=== PATIENT | female | born 2000 | race Caucasian/White ===

== ENCOUNTER 2018-06-21 15:11 | Emergency (ER) | payer BC ==
--- NOTE | 2018-06-21 15:19 | EDPHY ---
H & P Time Seen by Provider: 06/21/18 15:18 HPI/ROS: CHIEF COMPLAINT: Nausea and vomiting HISTORY OF PRESENT ILLNESS: Patient had IUD inserted on Saturday and had nausea vomiting cramping that day. She was felt better and Saturday and then went Saturday night had drinks with friends and then since last night has had mild cramping but mostly nausea vomiting and can't keep anything down. Associated with hot flashes but not with diarrhea, she has had constipation. Symptoms severe and worse today with trying to eat or drink anything. Not associated with headache or fever but she does feel little bit dizzy and lightheaded. REVIEW OF SYSTEMS: Eye: no change in vision ENT: no sore throat Cardiac: no chest pain or syncope Pulmonary: no cough or SOB Abdomen: HPI Musculoskeletal: no back pain Skin: no rash Neuro: no headache Constitutional: no fever : no urinary symptoms or vaginal bleeding or discharge A comprehensive 10 point review of systems is otherwise negative aside from elements mentioned in the history of present illness. PAST MEDICAL HISTORY: IUD, recently removed hormone implant from left arm Social history: Alcohol last night General Appearance: Alert and conversant, cooperative. Eyes: No scleral icterus. ENT, Mouth: Dry mucous membranes. Respiratory: Normal respiratory effort, breath sounds equal, lungs are clear to auscultation. Cardiovascular: Regular rate and rhythm. Gastrointestinal: Abdomen is soft and non tender. No rebound or guarding,and specifically no lower abdominal tenderness or tenderness over McBurney's point. Neurological: Alert, face symmetric, normal motor and sensory in extremities. Skin: Warm and dry, no rashes. Steri-Strips still in place on the left upper arm, wound is clean dry and intact. Musculoskeletal: No peripheral edema. Psychiatric: Mildly anxious. Emergency Department course/MDM: Normal saline 2 L IV, Zofran 4 mg IV for nausea and vomiting. Toradol 15 mg IV for cramping which persists after her IUD insertion 3 days ago. I think it is unlikely she has acute appendicitis, bowel obstruction, acute surgical abdominal process, pancreatitis or cholecystitis. 1602: Labs reviewed including elevated WBC likely due to stress demargination, venous bicarbonate likely due to dehydration. Says she feels better, has some pretty severe heartburn likely from all of her vomiting, no further nausea. Texting on her phone, does appear more comfortable now. 1720: Taking p.o. Fluids, GI cocktail given. Smoking Status: Current some day smoker Constitutional: Initial Vital Signs Temperature (C) 36.5 C 06/21/18 15:15 Heart Rate 74 06/21/18 15:15 Respiratory Rate 16 06/21/18 15:15 Blood Pressure 127/88 H 06/21/18 15:15 O2 Sat (%) 98 06/21/18 15:15 O2 Delivery Mode Room Air Allergies/Adverse Reactions: amoxicillin Allergy (Verified 06/21/18 15:14) Home Medications: Medication Instructions Recorded Adderall 10 MG (*) 06/21/18 Ondansetron Odt [Zofran Odt] 4 mg PO Q4PRN #6 tab 06/21/18 Medical Decision Making - Data Points Laboratory Results: Laboratory Results 06/21/18 15:25 06/21/18 15:25 06/21/18 06/21/18 06/21/18 15:25 15:25 15:25 WBC 21.76 10^3/uL H 10^3/uL (3.80-9.50) RBC 5.53 10^6/uL H 10^6/uL (4.18-5.33) Hgb 16.0 g/dL g/dL (12.6-16.3) Hct 45.6 % % (38.0-47.0) MCV 82.5 fL fL (81.5-99.8) MCH 28.9 pg pg (27.9-34.1) MCHC 35.1 g/dL g/dL (32.4-36.7) RDW 12.2 % % (11.5-15.2) Plt Count 393 10^3/uL 10^3/uL (150-400) MPV 9.6 fL fL (8.7-11.7) Neut % (Auto) 92.2 % H % (39.3-74.2) Lymph % (Auto) 5.2 % L % (15.0-45.0) [place] % (Auto) 2.2 % L % (4.5-13.0) Eos % (Auto) 0.0 % L % (0.6-7.6) Baso % (Auto) 0.1 % L % (0.3-1.7) Nucleat RBC Rel Count 0.0 % % (0.0-0.2) Absolute Neuts (auto) 20.06 10^3/uL H 10^3/uL (1.70-6.50) Absolute Lymphs (auto) 1.13 10^3/uL 10^3/uL (1.00-3.00) Absolute Monos (auto) 0.48 10^3/uL 10^3/uL (0.30-0.80) Absolute Eos (auto) 0.00 10^3/uL L 10^3/uL (0.03-0.40) Absolute Basos (auto) 0.02 10^3/uL 10^3/uL (0.02-0.10) Absolute Nucleated RBC 0.00 10^3/uL 10^3/uL (0-0.01) Immature Gran % 0.3 % % (0.0-1.1) Immature Gran # 0.07 10^3/uL 10^3/uL (0.00-0.10) RBC/WBC/PLT Morphology TNP Platelet Estimate TNP Sodium 137 mEq/L mEq/L (135-145) Potassium 4.7 mEq/L mEq/L (3.3-5.0) Chloride 96 mEq/L L mEq/L (97-110) Carbon Dioxide 24 mEq/l mEq/l (22-31) Anion Gap 17 mEq/L H mEq/L (8-16) BUN 11 mg/dL mg/dL (7-23) Creatinine 0.7 mg/dL mg/dL (0.6-1.0) Estimated GFR > 60 Glucose 89 mg/dL mg/dL (70-100) Calcium 10.8 mg/dL H mg/dL (8.5-10.4) Phosphorus 4.0 mg/dL mg/dL (2.5-4.5) Beta HCG, Qual NEGATIVE Medications Given: Discontinued Medications Sodium Chloride (Ns) 1,000 mls @ 0 mls/hr IV EDNOW ONE; Wide Open PRN Reason: Protocol Stop: 06/21/18 15:24 Last Admin: 06/21/18 15:32 Dose: 1,000 mls Sodium Chloride (Ns) 1,000 mls @ 0 mls/hr IV EDNOW ONE; Wide Open PRN Reason: Protocol Stop: 06/21/18 15:24 Last Admin: 06/21/18 15:32 Dose: 1,000 mls Ketorolac Tromethamine (Toradol) 15 mg IVP EDNOW ONE Stop: 06/21/18 15:24 Last Admin: 06/21/18 15:35 Dose: 15 mg Ondansetron HCl (Zofran) 4 mg IVP EDNOW ONE Stop: 06/21/18 15:24 Last Admin: 06/21/18 15:32 Dose: 4 mg Departure - Departure Disposition: Home, Routine, Self-Care Clinical Impression: Dehydration Nausea & vomiting Qualifiers: Vomiting type: unspecified Vomiting Intractability: non-intractable Qualified Code(s): R11.2 - Nausea with vomiting, unspecified Condition: Good Instructions: Acute Nausea and Vomiting (ED) Referrals: [place]ormier [place] [place] - As per Instructions Prescriptions: Ondansetron Odt [Zofran Odt] 4 mg PO Q4PRN #6 tab
[2018-06-21] MEDS ORDERED: KETOROLAC 30 MG/1 ML SDV IVP ONE (15:23)
[2018-06-21] MEDS ORDERED: NS 1,000 ML IV ONE ×2 (15:23)
[2018-06-21] MEDS ORDERED: ONDANSETRON 4 MG/2 ML VIAL IVP ONE (15:23)
[2018-06-21 15:44] LABS: PLATELET COUNT 393 10^3/uL (150-400)
[2018-06-21] MEDS ORDERED: MAG HYDROX/AL HYDROX/SIMETH 30 ML UDCUP PO ONE (17:19)
[2018-06-21] MEDS ORDERED: HYOSCYAMINE SULFATE 0.125 MG TAB PO ONE (17:19)
[2018-06-21] MEDS ORDERED: LIDOCAINE 2% VISCOUS 15 ML UDCUP PO ONE (17:19)
[2018-06-21 18:20] VITALS: BP 89/49
== END 2018-06-21 18:19 | disposition home or self-care (01) ==
DX: R11.2 Nausea with vomiting, unspecified (principal); E86.9 Volume depletion, unspecified; Z97.5 Presence of (intrauterine) contraceptive device; F17.200 Nicotine dependence, unspecified, uncomplicated
CPT/HCPCS: 96374; J1885; J2405

== ENCOUNTER 2018-07-27 10:49 | Emergency (ER) | payer BC ==
[2018-07-27] MEDS ORDERED: ONDANSETRON 4 MG/2 ML VIAL ONE (11:03)
[2018-07-27] MEDS ORDERED: HALOPERIDOL LACT 5 MG/ML INJ IVP ONE (11:15)
[2018-07-27] MEDS ORDERED: PANTOPRAZOLE SODIUM 40 MG VIAL IVP ONE (11:16)
[2018-07-27] MEDS ORDERED: NS 1,000 ML IV ONE ×2 (11:16→11:54)
--- NOTE | 2018-07-27 11:16 | EDPHY ---
General Time Seen by Provider: 07/27/18 11:06 Narrative: CHIEF COMPLAINT: Abdominal pain, nausea vomiting HISTORY OF PRESENT ILLNESS: Patient presents by private vehicle with complaints of abdominal pain, nausea vomiting. Symptoms started last night around 11:00 p.m.. She describes generalized abdominal pain that is worse in the epigastrium. Constant duration. Rated as severe. She began vomiting at midnight. She has had episodes of vomiting every 30 min with too numerous to count episodes. Pain is worse with movement and palpation. Minimal improvement rest. She describes achy feeling, joint pain, lightheaded, dizzy, numb and tingly. She reports heavy alcohol use on Saturday night but none yesterday. She does report daily marijuana use. She has previous episode of this 1 month ago, for which she was evaluated here. No formal diagnosis. She has not seen anyone for follow-up for this. No other associated complaints or modifying factors. REVIEW OF SYSTEMS: 10 systems were reviewed and negative with the exception of the elements mentioned in the history of present illness. PCP: Located in [place] SPECIALISTS: None PAST MEDICAL HISTORY: Denies. Reports that she has not been taking her oral contraceptive or acting medicine recently. PAST SURGICAL HISTORY: No abdominal surgical history. No pregnancies. SOCIAL HISTORY: Denies tobacco use. Occasional alcohol use. Daily marijuana use. [employer] student. Originally from [place] FAMILY HISTORY: Noncontributory EXAMINATION: Vitals: Triage VS reviewed General Appearance: Alert, no distress. Nontoxic. Head: normocephalic, atraumatic Eyes: Pupils equal and round, no conjunctival pallor or injection ENT, Mouth: Mucous membranes dry. Airway patent. Neck: Normal inspection, supple, non-tender Respiratory: Lungs are clear to auscultation Cardiovascular: Regular rate and rhythm no murmur Gastrointestinal: Abdomen is soft and nondistended. Mild epigastric tenderness. No tympany. No rigidity. No guarding. Bowel sounds present all 4 quadrants. No CVA tenderness. Back: non-tender, no bony abnormalities Neurological: A&O, nonfocal, normal gait Skin: Warm and dry, no rash Extremities: Nontender, no pedal edema Psychiatric: Mood and affect normal DIFFERENTIAL DIAGNOSES: Including but not limited to acute gastritis, alcoholic gastritis, cyclical vomiting, THC hyperemesis, pancreatitis, cholecystitis, cholelithiasis, colitis MDM: 11:10 a.m. Nausea vomiting abdominal pain with benign abdominal examination. She does have history examination that suggest gastritis versus THC hyperemesis. Vital signs are within normal limits and she does not meet SIRS criteria. IV has been established. Laboratory studies pending. I have ordered symptomatic medications and will re-evaluate shortly. 12:40 p.m. Patient re-evaluated. She is feeling much better and tolerating liquid intake. Laboratory studies reviewed and there are no significant abnormalities. Leukocytosis, suspected to be demargination. She has a benign abdominal examination at this time. She is comfortable going home. I discussed the need to refrain from any THC use for the next 6 weeks. We discussed avoidance of alcohol or other offending agents. We discussed clear liquid diet, advancing slowly as tolerated. We discussed ED precautions for return of pain, fever, persistent vomiting of intake by mouth. She is comfortable this plan. Discharged stable condition. SUPERVISION: This patient was independently evaluated without direct involvement of or examination by the attending physician. CONSULTATION: None - History History Review: I reviewed the patient's medical records Smoking Status: Current some day smoker - Objective Vital Signs: Initial Vital Signs Temperature (C) 97.9 F 07/27/18 10:56 Heart Rate 71 07/27/18 10:56 Respiratory Rate 18 07/27/18 10:56 Blood Pressure 137/99 H 07/27/18 10:56 O2 Sat (%) 98 07/27/18 10:56 O2 Delivery Mode Room Air Allergies/Adverse Reactions: amoxicillin Allergy (Verified 07/27/18 10:58) Home Medications: Medication Instructions Recorded Adderall 10 MG (*) 06/21/18 Ondansetron Odt [Zofran Odt] 4 mg PO Q4PRN #6 tab 06/21/18 Promethazine HCl [Phenergan 25mg 25 mg PO Q8 PRN #12 tab 07/27/18 (*)] Sucralfate [Carafate Oral Liquid 10 ml PO QID PRN #240 ml 07/27/18 100 mg/ml] Laboratory Results: Laboratory Results 07/27/18 11:15 07/27/18 11:15 07/27/18 07/27/18 07/27/18 11:15 11:15 11:15 WBC RBC Hgb Hct MCV MCH MCHC RDW Plt Count MPV Neut % (Auto) Lymph % (Auto) [place] % (Auto) Eos % (Auto) Baso % (Auto) Nucleat RBC Rel Count Absolute Neuts (auto) Absolute Lymphs (auto) Absolute Monos (auto) Absolute Eos (auto) Absolute Basos (auto) Absolute Nucleated RBC Immature Gran % Immature Gran # Sodium 138 mEq/L mEq/L (135-145) Potassium 4.3 mEq/L mEq/L (3.3-5.0) Chloride 100 mEq/L mEq/L (97-110) Carbon Dioxide 22 mEq/l mEq/l (22-31) Anion Gap 16 mEq/L H mEq/L (6-14) BUN 11 mg/dL mg/dL (7-23) Creatinine 0.6 mg/dL mg/dL (0.6-1.0) Estimated GFR > 60 Glucose 122 mg/dL H mg/dL (70-100) Calcium 10.3 mg/dL mg/dL (8.5-10.4) Total Bilirubin 1.2 mg/dL mg/dL (0.1-1.4) Conjugated Bilirubin 0.3 mg/dL mg/dL (0.0-0.5) Unconjugated Bilirubin 0.9 mg/dL mg/dL (0.0-1.1) AST 47 IU/L H IU/L (14-46) ALT 34 IU/L IU/L (9-52) Alkaline Phosphatase 93 IU/L IU/L (38-126) Total Protein 8.3 g/dL H g/dL (6.3-8.2) Albumin 4.7 g/dL g/dL (3.5-5.0) Lipase 42 IU/L IU/L (23-300) Beta HCG, Qual NEGATIVE Nasal Influenza A PCR NEGATIVE FOR FLU A (NEGATIVE) Nasal Influenza B PCR NEGATIVE FOR FLU B (NEGATIVE) 07/27/18 11:15 WBC 14.17 10^3/uL H 10^3/uL (3.80-9.50) RBC 4.96 10^6/uL 10^6/uL (4.18-5.33) Hgb 14.4 g/dL g/dL (12.6-16.3) Hct 42.1 % % (38.0-47.0) MCV 84.9 fL fL (81.5-99.8) MCH 29.0 pg pg (27.9-34.1) MCHC 34.2 g/dL g/dL (32.4-36.7) RDW 13.2 % % (11.5-15.2) Plt Count 316 10^3/uL 10^3/uL (150-400) MPV 10.3 fL fL (8.7-11.7) Neut % (Auto) 91.0 % H % (39.3-74.2) Lymph % (Auto) 5.9 % L % (15.0-45.0) [place] % (Auto) 2.4 % L % (4.5-13.0) Eos % (Auto) 0.0 % L % (0.6-7.6) Baso % (Auto) 0.2 % L % (0.3-1.7) Nucleat RBC Rel Count 0.0 % % (0.0-0.2) Absolute Neuts (auto) 12.90 10^3/uL H 10^3/uL (1.70-6.50) Absolute Lymphs (auto) 0.83 10^3/uL L 10^3/uL (1.00-3.00) Absolute Monos (auto) 0.34 10^3/uL 10^3/uL (0.30-0.80) Absolute Eos (auto) 0.00 10^3/uL L 10^3/uL (0.03-0.40) Absolute Basos (auto) 0.03 10^3/uL 10^3/uL (0.02-0.10) Absolute Nucleated RBC 0.00 10^3/uL 10^3/uL (0-0.01) Immature Gran % 0.5 % % (0.0-1.1) Immature Gran # 0.07 10^3/uL 10^3/uL (0.00-0.10) Sodium Potassium Chloride Carbon Dioxide Anion Gap BUN Creatinine Estimated GFR Glucose Calcium Total Bilirubin Conjugated Bilirubin Unconjugated Bilirubin AST ALT Alkaline Phosphatase Total Protein Albumin Lipase Beta HCG, Qual Nasal Influenza A PCR Nasal Influenza B PCR Medications Given: Discontinued Medications Diphenhydramine HCl (Benadryl Injection) 25 mg IVP EDNOW ONE Stop: 07/27/18 11:16 Last Admin: 07/27/18 11:27 Dose: 25 mg Haloperidol Lactate (Haldol Injection) 2.5 mg IVP EDNOW ONE Stop: 07/27/18 11:16 Last Admin: 07/27/18 11:28 Dose: 2.5 mg Sodium Chloride (Ns) 1,000 mls @ 0 mls/hr IV EDNOW ONE; Wide Open PRN Reason: Protocol Stop: 07/27/18 11:17 Last Admin: 07/27/18 11:28 Dose: 1,000 mls Sodium Chloride (Ns) 1,000 mls @ 0 mls/hr IV EDNOW ONE; Wide Open PRN Reason: Protocol Stop: 07/27/18 11:55 Last Admin: 07/27/18 12:32 Dose: 1,000 mls Pantoprazole Sodium (Protonix) 40 mg IVP EDNOW ONE Stop: 07/27/18 11:17 Last Admin: 07/27/18 11:28 Dose: 40 mg Departure - Departure Disposition: Home, Routine, Self-Care Clinical Impression: Acute gastritis Qualifiers: Gastritis type: unspecified gastritis Gastritis bleeding: without bleeding Qualified Code(s): K29.00 - Acute gastritis without bleeding Nausea & vomiting Qualifiers: Vomiting type: cyclical vomiting Vomiting Intractability: non-intractable Qualified Code(s): G43.A0 - Cyclical vomiting, not intractable Condition: Fair Instructions: Cyclic Vomiting Syndrome (ED), Gastritis (ED), Clear Liquid Diet (ED) Additional Instructions: 1. Recommend avoidance of alcohol and THC for 6 weeks 2. Nausea medication as prescribed as needed 3. Pepcid 20 mg by mouth twice daily for 30 days 4. Carafate as prescribed as needed for abdominal discomfort 5. Contact the provided physicians for outpatient follow-up 6. ED precautions for return of pain, intractable nausea vomiting, intolerance of liquids or solids 7. Recommend clear liquid diet for 24 hr, advance slowly as tolerated Referrals: Mckenzie Alarcon MD [Medical Doctor] - As per Instructions Quiana Guerra MD [Medical Doctor] - As per Instructions Stand Alone Forms: School Excuse Prescriptions: Promethazine HCl [Phenergan 25mg (*)] 25 mg PO Q8 PRN #12 tab PRN Reason: Nausea/Vomiting, Use 1st Sucralfate [Carafate Oral Liquid 100 mg/ml] 10 ml PO QID PRN #240 ml PRN Reason: abdominal pain
[2018-07-27 11:30] LABS: PLATELET COUNT 316 10^3/uL (150-400)
[2018-07-27 12:58] VITALS: BP 118/62
== END 2018-07-27 12:56 | disposition home or self-care (01) ==
DX: K29.00 Acute gastritis without bleeding (principal); G43.A0 Cyclical vomiting, in migraine, not intractable; F17.200 Nicotine dependence, unspecified, uncomplicated
CPT/HCPCS: J1200; J1630; J2405

== ENCOUNTER 2018-12-04 16:09 | Observation (INO) | payer BC ==
[2018-12-04] MEDS ORDERED: ONDANSETRON 4 MG/2 ML VIAL ONE (16:27)
--- NOTE | 2018-12-04 16:36 | EDPHY ---
H & P Stated Complaint: abdominal pain, n/v/d Time Seen by Provider: 12/04/18 16:36 HPI/ROS: HPI CHIEF COMPLAINT: Nausea vomiting and diarrhea. HISTORY OF PRESENT ILLNESS: This patient is a 18-year-old female she has a history of cyclic vomiting syndrome, she has not smoked marijuana in 1 month. She reports 2 days ago she started developing nausea vomiting and has a history of gastritis as well, states she vomited multiple times in over the past 24-48 hours had ongoing continuous nausea and vomiting. Nonbloody. Also developed some abdominal cramps. Denies fever, denies chest pain, denies shortness of breath. Denies urinary symptoms. Past Medical History: Cyclic vomiting syndrome, history of marijuana use Past Surgical History: Denies recent surgery Social History: Denies current use of drugs alcohol tobacco. Family History: Noncontributory ROS REVIEW OF SYSTEMS: 10 Systems were reviewed and negative with the exception of the elements mentioned in the history of present illness. Exam Constitutional appears well nontoxic triage nursing summary reviewed, vital signs reviewed, awake/alert. Eyes normal conjunctivae and sclera, EOMI, PERRLA. HENT normal inspection, atraumatic, moist mucus membranes, no epistaxis, neck supple/ no meningismus, no raccoon eyes. Respiratory clear to auscultation bilaterally, normal breath sounds, no respiratory distress, no wheezing. Cardiovascular rate normal, regular rhythm, no murmur, no edema, distal pulses normal. Gastrointestinal abdomen soft nontender benign on exam. no rebound, no guarding , normal bowel sounds, no distension, no pulsatile mass. Genitourinary no CVA tenderness. Musculoskeletal no midline vertebral tenderness, full range of motion, no calf swelling, no tenderness of extremities, no meningismus, good pulses, neurovascularly intact. Skin pink, warm, & dry, no rash, skin atraumatic. Neurologic awake, alert and oriented x 3, AAOx3, moves all 4 extremities equally, motor intact, sensory intact, CN II-XII intact, normal cerebellar, normal vision, normal speech. Psychiatric normal mood/affect. Heme/Lymph/Immune no lymphadenopathy. Differential Diagnosis: Includes but is not limited to in a particular order acute nausea vomiting, cyclic vomiting syndrome gastritis, bowel obstruction, dehydration, electrolyte disturbance Medical Decision Making: Plan for this patient IV established IV fluids, IV Pepcid, GI cocktail IV fluids, basic labs and re-evaluate. Re-evaluation: 2010: Patient re-evaluate this time continues to have vomiting despite multiple rounds of IV fluids and IV antiemetics. So far here in emergency room she has had 2 L of fluid, 4 mg IV Zofran, 6.25 mg of IV Phenergan, she continues to have vomiting. Labs reviewed. Her abdomen is benign on exam. Most likely her cyclic vomiting syndrome is continuing. I have ordered her 3rd L fluid, and another round of Zofran. She will be admitted for intractable nausea vomiting and admitted to the hospitalist service overnight for further observation and care. The patient would prefer this. She does not want to go home with vomiting ongoing. Dr. Samano has accepted for admission. The patient continues to vomit. Source: Patient - Personal History LMP (Females 10-55): 22-28 Days Ago Current Tetanus Diphtheria and Acellular Pertussis (TDAP): Yes - Medical/Surgical History Hx Asthma: No Hx Chronic Respiratory Disease: No Hx Diabetes: No Hx Cardiac Disease: No Hx Renal Disease: No Hx Cirrhosis: No Hx Alcoholism: No Hx HIV/AIDS: No Hx Splenectomy or Spleen Trauma: No Other PMH: denies - Social History Smoking Status: Current some day smoker Constitutional: Initial Vital Signs Temperature (C) 36.8 C 12/04/18 16:16 Heart Rate 68 12/04/18 16:16 Respiratory Rate 14 12/04/18 16:16 Blood Pressure 117/71 12/04/18 16:16 O2 Sat (%) 99 12/04/18 16:16 O2 Delivery Mode Room Air Allergies/Adverse Reactions: amoxicillin Allergy (Verified 07/27/18 10:58) Home Medications: Medication Instructions Recorded Adderall 10 MG (*) 06/21/18 Ondansetron Odt [Zofran Odt] 4 mg PO Q4PRN #6 tab 06/21/18 Promethazine HCl [Phenergan 25mg 25 mg PO Q8 PRN #12 tab 07/27/18 (*)] Sucralfate [Carafate Oral Liquid 10 ml PO QID PRN #240 ml 07/27/18 100 mg/ml] Medical Decision Making - Data Points Laboratory Results: Laboratory Results 12/04/18 16:40 12/04/18 16:40 12/04/18 12/04/1812/04/19 19:45 16:40 16:40 WBC RBC Hgb Hct MCV MCH MCHC RDW Plt Count MPV Neut % (Auto) Lymph % (Auto) [place] % (Auto) Eos % (Auto) Baso % (Auto) Nucleat RBC Rel Count Absolute Neuts (auto) Absolute Lymphs (auto) Absolute Monos (auto) Absolute Eos (auto) Absolute Basos (auto) Absolute Nucleated RBC Immature Gran % Immature Gran # Sodium 137 mEq/L mEq/L (135-145) Potassium 3.7 mEq/L mEq/L (3.5-5.2) Chloride 101 mEq/L mEq/L (97-110) Carbon Dioxide 25 mEq/l mEq/l (22-31) Anion Gap 11 mEq/L mEq/L (6-14) BUN 7 mg/dL mg/dL (7-23) Creatinine 0.9 mg/dL mg/dL (0.6-1.0) Estimated GFR > 60 Glucose 87 mg/dL mg/dL (70-100) Calcium 9.7 mg/dL mg/dL (8.5-10.4) Total Bilirubin 0.6 mg/dL mg/dL (0.1-1.4) Conjugated Bilirubin 0.4 mg/dL mg/dL (0.0-0.5) Unconjugated Bilirubin 0.2 mg/dL mg/dL (0.0-1.1) AST 21 IU/L IU/L (14-46) ALT 14 IU/L IU/L (9-52) Alkaline Phosphatase 51 IU/L IU/L (38-126) Total Protein 7.6 g/dL g/dL (6.3-8.2) Albumin 4.4 g/dL g/dL (3.5-5.0) Lipase 58 IU/L IU/L (23-300) Beta HCG, Qual NEGATIVE Urine Color YELLOW Urine Appearance CLEAR Urine pH 7.0 (5.0-7.5) Ur Specific [place] 1.014 (1.002-1.030) Urine Protein NEGATIVE (NEGATIVE) Urine Ketones 1+ H (NEGATIVE) Urine Blood NEGATIVE (NEGATIVE) Urine Nitrate NEGATIVE (NEGATIVE) Urine Bilirubin NEGATIVE (NEGATIVE) Urine Urobilinogen NEGATIVE EU EU (0.2-1.0) Ur Leukocyte Esterase TRACE H (NEGATIVE) Urine RBC 1-3 /hpf /hpf (0-3) Urine WBC 1-3 /hpf /hpf (0-3) Ur Epithelial Cells 1+ /lpf /lpf (NONE-1+) Urine Bacteria 1+ /hpf H /hpf (NONE SEEN) Urine Mucus TRACE /lpf /lpf (NONE-1+) Urine Glucose NEGATIVE (NEGATIVE) Urine Opiates Screen NEGATIVE (NEGATIVE) Urine Barbiturates NEGATIVE (NEGATIVE) Ur Phencyclidine Scrn NEGATIVE (NEGATIVE) Ur Amphetamine Screen NEGATIVE (NEGATIVE) U Benzodiazepines Scrn NON-NEGATIVE H (NEGATIVE) Urine Cocaine Screen NEGATIVE (NEGATIVE) U Marijuana (THC) Screen NON-NEGATIVE H (NEGATIVE) 12/04/18 16:40 WBC 9.13 10^3/uL 10^3/uL (3.80-9.50) RBC 4.96 10^6/uL 10^6/uL (4.18-5.33) Hgb 14.7 g/dL g/dL (12.6-16.3) Hct 42.6 % % (38.0-47.0) MCV 85.9 fL fL (81.5-99.8) MCH 29.6 pg pg (27.9-34.1) MCHC 34.5 g/dL g/dL (32.4-36.7) RDW 12.9 % % (11.5-15.2) Plt Count 268 10^3/uL 10^3/uL (150-400) MPV 10.0 fL fL (8.7-11.7) Neut % (Auto) 69.3 % % (39.3-74.2) Lymph % (Auto) 20.2 % % (15.0-45.0) [place] % (Auto) 8.8 % % (4.5-13.0) Eos % (Auto) 1.1 % % (0.6-7.6) Baso % (Auto) 0.3 % % (0.3-1.7) Nucleat RBC Rel Count 0.0 % % (0.0-0.2) Absolute Neuts (auto) 6.33 10^3/uL 10^3/uL (1.70-6.50) Absolute Lymphs (auto) 1.84 10^3/uL 10^3/uL (1.00-3.00) Absolute Monos (auto) 0.80 10^3/uL 10^3/uL (0.30-0.80) Absolute Eos (auto) 0.10 10^3/uL 10^3/uL (0.03-0.40) Absolute Basos (auto) 0.03 10^3/uL 10^3/uL (0.02-0.10) Absolute Nucleated RBC 0.00 10^3/uL 10^3/uL (0-0.01) Immature Gran % 0.3 % % (0.0-1.1) Immature Gran # 0.03 10^3/uL 10^3/uL (0.00-0.10) Sodium Potassium Chloride Carbon Dioxide Anion Gap BUN Creatinine Estimated GFR Glucose Calcium Total Bilirubin Conjugated Bilirubin Unconjugated Bilirubin AST ALT Alkaline Phosphatase Total Protein Albumin Lipase Beta HCG, Qual Urine Color Urine Appearance Urine pH Ur Specific [place] Urine Protein Urine Ketones Urine Blood Urine Nitrate Urine Bilirubin Urine Urobilinogen Ur Leukocyte Esterase Urine RBC Urine WBC Ur Epithelial Cells Urine Bacteria Urine Mucus Urine Glucose Urine Opiates Screen Urine Barbiturates Ur Phencyclidine Scrn Ur Amphetamine Screen U Benzodiazepines Scrn Urine Cocaine Screen U Marijuana (THC) Screen Medications Given: Discontinued Medications Al Hydroxide/Mg Hydroxide (Maalox Susp) 30 ml PO ONCE ONE Stop: 12/04/18 16:43 Last Admin: 12/04/18 16:54 Dose: 30 ml Hyoscyamine Sulfate (Levsin, Hyomax-Sl) 0.25 mg PO ONCE ONE Stop: 12/04/18 16:43 Last Admin: 12/04/18 16:54 Dose: 0.25 mg Sodium Chloride (Ns) 1,000 mls @ 0 mls/hr IV EDNOW ONE; Wide Open PRN Reason: Protocol Stop: 12/04/18 16:43 Last Admin: 12/04/18 16:53 Dose: 1,000 mls Sodium Chloride (Ns) 1,000 mls @ 0 mls/hr IV EDNOW ONE; Wide Open PRN Reason: Protocol Stop: 12/04/18 16:43 Last Admin: 12/04/18 16:54 Dose: 1,000 mls Famotidine/Sodium Chloride (Pepcid 20 Mg (Premix)) 50 mls @ 200 mls/hr IV EDNOW ONE Stop: 12/04/18 16:56 Last Admin: 12/04/18 16:55 Dose: 50 mls Lidocaine (Lidocaine 2% Viscous) 15 ml PO ONCE ONE Stop: 12/04/18 16:43 Last Admin: 12/04/18 16:54 Dose: 15 ml Ondansetron HCl (Zofran) 4 mg IVP EDNOW ONE Stop: 12/04/18 16:39 Last Admin: 12/04/18 16:41 Dose: 4 mg Promethazine HCl (Phenergan) 6.25 mg IVP ONCE ONE Stop: 12/04/18 17:41 Last Admin: 12/04/18 17:42 Dose: 6.25 mg Departure - Departure Disposition: [facility] Inpatient Acute Clinical Impression: Vomiting, Marijuana abuse Condition: Fair Referrals: NONE *PRIMARY CARE P,. [Primary Care Provider] - As per Instructions
[2018-12-04] MEDS ORDERED: ONDANSETRON 4 MG/2 ML VIAL IVP ONE ×2 (16:38→20:10)
[2018-12-04] MEDS ORDERED: LIDOCAINE 2% VISCOUS 15 ML UDCUP PO ONE (16:42)
[2018-12-04] MEDS ORDERED: HYOSCYAMINE SULFATE 0.125 MG TAB PO ONE (16:42)
[2018-12-04] MEDS ORDERED: NS 1,000 ML IV ONE ×3 (16:42→20:10)
[2018-12-04] MEDS ORDERED: FAMOTIDINE 20 MG/NACL 50 ML IV ONE (16:42)
[2018-12-04] MEDS ORDERED: MAG HYDROX/AL HYDROX/SIMETH 30 ML UDCUP PO ONE (16:42)
[2018-12-04 16:56] LABS: PLATELET COUNT 268 10^3/uL (150-400)
[2018-12-04] MEDS ORDERED: PROMETHAZINE HCL 25 MG/ML INJ IVP ONE (17:40)
[2018-12-04] MEDS ORDERED: ONDANSETRON 4 MG/2 ML VIAL IVP PRN (21:03)
[2018-12-04] MEDS ORDERED: ONDANSETRON DISINTEGRATING 4 MG TAB PO PRN (21:03)
[2018-12-04] MEDS ORDERED: ACETAMINOPHEN 325 MG TAB PO PRN (21:03)
[2018-12-04] MEDS ORDERED: NS 1,000 ML IV SCH (21:15)
--- NOTE | 2018-12-04 22:06 | PDGENHP ---
History and Physical - Chief Complaint nausea, vomiting - History of Present Illness 18yo F with history of cyclic vomiting syndrome, gastritis presents with 2-3 days of severe nausea and vomiting. This has been associated with diffuse abdominal cramping pain. She has also had a few looser stools. No blood in emesis or stools. Has had chills but no fevers. She ate some khmer meatballs on saturday prior to symptoms starting but other people who ate them did not get sick. No recent travel or antibiotics. In the ED, she was given IV anti-emetics and IVF but her symptoms persisted. She is unable to tolerate PO and is being admitted for further management. Case discussed with ED physician Omari Negro. History Information - Allergies/Home Medication List Allergies/Adverse Reactions: amoxicillin Allergy (Verified 07/27/18 10:58) Home Medications: Norethindrone AC-Eth Estradiol [Loestrin 21 1.5-30 Tablet] 1 each PO DAILY 12/04 [Last Taken Unknown] I have personally reviewed and updated: family history, medical history, social history, surgical history - Past Medical History Additional medical history: cyclic vomiting syndrome, gastritis - Family History Additional family history: no abdominal surgeries - Social History Smoking Status: Current some day smoker Alcohol Use: Rarely Drug Use: Marijuana (reports "weekly" use) Review of Systems Review of Systems: ROS: 10pt was reviewed & negative except for what was stated in HPI & below Physical Exam Physical Exam: Temp Pulse Resp BP Pulse Ox 36.5 C 58 L 18 127/99 H 99 12/04/18 20:25 12/04/18 21:20 12/04/18 21:20 12/04/18 21:20 12/04/18 21:20 Constitutional: appears nourished, uncomfortable Eyes: PERRL, anicteric sclera Ears, Nose, Mouth, Throat: hearing normal, ears appear normal, no oral mucosal ulcers, dry mucous membranes Cardiovascular: regular rate and rhythym, no murmur, rub, or gallop, No edema Respiratory: no respiratory distress, no rales or rhonchi, clear to auscultation Gastrointestinal: normoactive bowel sounds, tenderness (diffuse), No hepatosplenomegally, No guarding, No distension Genitourinary: no bladder fullness, no bladder tenderness Skin: warm, normal color, no rashes or abrasions, no fluctuance, no induration, No mottled Musculoskeletal: full muscle strength, no muscle tenderness, normal joint ROM, no joint effusions Neurologic: AAOx3 Psychiatric: interacting appropriately, not anxious, not encephalopathic, thought process linear Lab Data & Imaging Review 12/04/18 16:40 12/04/18 16:40 WBC 9.13 10^3/uL (3.80-9.50) 12/04/18 16:40 RBC 4.96 10^6/uL (4.18-5.33) 12/04/18 16:40 Hgb 14.7 g/dL (12.6-16.3) 12/04/18 16:40 Hct 42.6 % (38.0-47.0) 12/04/18 16:40 MCV 85.9 fL (81.5-99.8) 12/04/18 16:40 MCH 29.6 pg (27.9-34.1) 12/04/18 16:40 MCHC 34.5 g/dL (32.4-36.7) 12/04/18 16:40 RDW 12.9 % (11.5-15.2) 12/04/18 16:40 Plt Count 268 10^3/uL (150-400) 12/04/18 16:40 MPV 10.0 fL (8.7-11.7) 12/04/18 16:40 Neut % (Auto) 69.3 % (39.3-74.2) 12/04/18 16:40 Lymph % (Auto) 20.2 % (15.0-45.0) 12/04/18 16:40 [place] % (Auto) 8.8 % (4.5-13.0) 12/04/18 16:40 Eos % (Auto) 1.1 % (0.6-7.6) 12/04/18 16:40 Baso % (Auto) 0.3 % (0.3-1.7) 12/04/18 16:40 Nucleat RBC Rel Count 0.0 % (0.0-0.2) 12/04/18 16:40 Absolute Neuts (auto) 6.33 10^3/uL (1.70-6.50) 12/04/18 16:40 Absolute Lymphs (auto) 1.84 10^3/uL (1.00-3.00) 12/04/18 16:40 Absolute Monos (auto) 0.80 10^3/uL (0.30-0.80) 12/04/18 16:40 Absolute Eos (auto) 0.10 10^3/uL (0.03-0.40) 12/04/18 16:40 Absolute Basos (auto) 0.03 10^3/uL (0.02-0.10) 12/04/18 16:40 Absolute Nucleated RBC 0.00 10^3/uL (0-0.01) 12/04/18 16:40 Immature Gran % 0.3 % (0.0-1.1) 12/04/18 16:40 Immature Gran # 0.03 10^3/uL (0.00-0.10) 12/04/18 16:40 Sodium 137 mEq/L (135-145) 12/04/18 16:40 Potassium 3.7 mEq/L (3.5-5.2) 12/04/18 16:40 Chloride 101 mEq/L (97-110) 12/04/18 16:40 Carbon Dioxide 25 mEq/l (22-31) 12/04/18 16:40 Anion Gap 11 mEq/L (6-14) 12/04/18 16:40 BUN 7 mg/dL (7-23) 12/04/18 16:40 Creatinine 0.9 mg/dL (0.6-1.0) 12/04/18 16:40 Estimated GFR > 60 12/04/18 16:40 Glucose 87 mg/dL (70-100) 12/04/18 16:40 Calcium 9.7 mg/dL (8.5-10.4) 12/04/18 16:40 Total Bilirubin 0.6 mg/dL (0.1-1.4) 12/04/18 16:40 Conjugated Bilirubin 0.4 mg/dL (0.0-0.5) 12/04/18 16:40 Unconjugated Bilirubin 0.2 mg/dL (0.0-1.1) 12/04/18 16:40 AST 21 IU/L (14-46) 12/04/18 16:40 ALT 14 IU/L (9-52) 12/04/18 16:40 Alkaline Phosphatase 51 IU/L (38-126) 12/04/18 16:40 Total Protein 7.6 g/dL (6.3-8.2) 12/04/18 16:40 Albumin 4.4 g/dL (3.5-5.0) 12/04/18 16:40 Lipase 58 IU/L (23-300) 12/04/18 16:40 Beta HCG, Qual NEGATIVE 12/04/18 16:40 Urine Color YELLOW 12/04/18 19:45 Urine Appearance CLEAR 12/04/18 19:45 Urine pH 7.0 (5.0-7.5) 12/04/18 19:45 Ur Specific Cunningham 1.014 (1.002-1.030) 12/04/18 19:45 Urine Protein NEGATIVE (NEGATIVE) 12/04/18 19:45 Urine Ketones 1+ (NEGATIVE) H 12/04/18 19:45 Urine Blood NEGATIVE (NEGATIVE) 12/04/18 19:45 Urine Nitrate NEGATIVE (NEGATIVE) 12/04/18 19:45 Urine Bilirubin NEGATIVE (NEGATIVE) 12/04/18 19:45 Urine Urobilinogen NEGATIVE EU (0.2-1.0) 12/04/18 19:45 Ur Leukocyte Esterase TRACE (NEGATIVE) H 12/04/18 19:45 Urine RBC 1-3 /hpf (0-3) 12/04/18 19:45 Urine WBC 1-3 /hpf (0-3) 12/04/18 19:45 Ur Epithelial Cells 1+ /lpf (NONE-1+) 12/04/18 19:45 Urine Bacteria 1+ /hpf (NONE SEEN) H 12/04/18 19:45 Urine Mucus TRACE /lpf (NONE-1+) 12/04/18 19:45 Urine Glucose NEGATIVE (NEGATIVE) 12/04/18 19:45 Urine Opiates Screen NEGATIVE (NEGATIVE) 12/04/18 19:45 Urine Barbiturates NEGATIVE (NEGATIVE) 12/04/18 19:45 Ur Phencyclidine Scrn NEGATIVE (NEGATIVE) 12/04/18 19:45 Ur Amphetamine Screen NEGATIVE (NEGATIVE) 12/04/18 19:45 U Benzodiazepines Scrn NON-NEGATIVE (NEGATIVE) H 12/04/18 19:45 Urine Cocaine Screen NEGATIVE (NEGATIVE) 12/04/18 19:45 U Marijuana (THC) Screen NON-NEGATIVE (NEGATIVE) H 12/04/18 19:45 Interpretation: AXR: non-obstructive bowel gas pattern Assessment & Plan Assessment: 18yo F with history of cyclic vomiting syndrome, gastritis presents with 2-3 days of severe nausea and vomiting. Plan: #Intractable nausea, vomiting: Suspect cyclic vomiting vs cannabis hyperemesis. She was not very forthcoming with me on her marijuana usage. Non-peritoneal abdomen. Labs and vitals normal. She does appear quite uncomfortable and is not tolerating PO. - Trial 1 dose of IV haldol - Continue IV anti-emetics, IVF - Do not think that advanced imaging is warranted at this point however if symptoms do not improved in coming 1-2 days or worsen, she may need - Trial capsaicin cream #Marijuana use: + on utox VTE ppx: low risk, scds Code; full Diet: clears, advance as tolerates Dispo: Admit under observation
[2018-12-04] MEDS ORDERED: HALOPERIDOL LACT 5 MG/ML INJ IVP ONE (23:43)
[2018-12-05] MEDS ORDERED: CAPSACIAN 0.075% CREAM TP PRN (00:11)
[2018-12-05] MEDS: ONDANSETRON 4 MG/2 ML VIAL IVP PRN ×2 (01:10→08:25)
[2018-12-05] MEDS: HYOSCYAMINE SULFATE 0.125 MG TAB PO PRN ×2 (01:10→08:57)
[2018-12-05 08:38] VITALS: BP 129/88
[2018-12-05] MEDS ORDERED: NORETHINDRONE AC ETH ESTRADIOL PO SCH (09:00)
--- NOTE | 2018-12-05 11:35 | HOSPPROG ---
Hospitalist Progress Note Assessment/Plan: 18yo F with history of cyclic vomiting syndrome, gastritis presents with 2-3 days of severe nausea and vomiting. First encounter, chart reviewed. *intractable nausea and vomiting -most likely secondary to Cannibis hyperemesis syndrome -vomiting stopped last night -didn't have an appetite for cereal this morning -will ask nursing staff to have her take a hot shower and then try eating some clears *marijuana use -noted on urine tox *plan: if she can eat and drink, will dc later this afternoon Subjective: Amara is not having any emesis, just not wanting to eat. Objective: Vital Signs Temp Pulse Resp BP Pulse Ox 37.2 C 79 16 129/88 H 99 12/05/18 08:00 12/05/18 08:00 12/05/18 08:00 12/05/18 08:00 12/05/18 08:00 12/04/18 12/05/18 12/06/18 05:59 05:59 05:59 Intake Total 4250 Output Total 400 300 Balance 3850 -300 - Physical Exam Constitutional: no apparent distress, appears nourished Eyes: PERRL Ears, Nose, Mouth, Throat: hearing normal Cardiovascular: regular rate and rhythym Respiratory: no respiratory distress Gastrointestinal: soft, non-tender abdomen Skin: warm Musculoskeletal: full muscle strength Neurologic: AAOx3 Psychiatric: interacting appropriately ICD10 Worksheet Patient Problems: Problems Problem Status Onset Marijuana abuse Acute Vomiting Acute
--- NOTE | 2018-12-05 13:01 | GDS ---
[f rep st] DISCHARGE SUMMARY DISCHARGE DIAGNOSES: 1. Nausea and vomiting secondary to hyperemesis syndrome. 2. Cannabis use. HOSPITAL COURSE: Briefly, the patient is a 18-year-old student with history of cyclic vomiting syndr ome with gastritis, who presented with 2 to 3 days of severe nausea and vomiting. She was treated wi supportive care. Today, she was able to eat soup and is drinking enough fluids. What helped her was taking a hot shower. She will be discharged today. I explained to the patient her emesis and vo miting are most likely related to cannabis. 1. Intractable nausea and vomiting, resolved. 2. Cannabis use noted on her urine tox screen. DISCHARGE CONDITION: Stable. Blood pressure is 129/88, respiratory rate is 16, pulse is 79, tempera ture is 37.2 Celsius, O2 sat on room air 99%. MEDICATIONS AT DISCHARGE: Please see the EMR. DISCHARGE INSTRUCTIONS: 1. Stay well hydrated. 2. Avoid use of all cannabis. 3. If she has nausea, to try taking hot showers. If she is unable to get adequate intake, to return to the ER. /[id number]/MODL
== END 2018-12-05 12:56 | disposition home or self-care (01) ==
LOC: FOB 21:35
PROVIDERS: ADMIT Internal Medicine; ATTEND Internal Medicine
DX: R11.2 Nausea with vomiting, unspecified (principal); F12.90 Cannabis use, unspecified, uncomplicated; R19.7 Diarrhea, unspecified; G43.A0 Cyclical vomiting, in migraine, not intractable; E86.9 Volume depletion, unspecified
CPT/HCPCS: 74018; 96361; 96374; 96375; 96376; 99285; G0378; 80305; J1630; J2405; J2550